=== PATIENT | female | born 1980 | race Caucasian/White ===

== ENCOUNTER 2016-06-28 15:49 | Emergency (ER) | payer OTHER ==
[~2016-06-28 15:49] MED LIST: MINIPRES CAP 2 M2 MG PO; MINIPRESS PO; PAXIL10 MG PO; PEPCID20 MG PO
[2016-06-28 17:02] LABS: HEMOGLOBIN 12.6 gm/dl (12.3-15.3); RED BLOOD COUNT 4.38 M/UL (4.00-5.10); WHITE BLOOD COUNT 11.1 K/UL (4.5-11.0)
[2016-06-28 17:20] LABS: BUN/CREATININE RATIO 28 (0-10)
== END 2016-06-28 20:05 | disposition home or self-care (01) ==
LOC: ER1 15:49
PROVIDERS: Physician Assistant
DX: R55 Syncope and collapse (principal); R11.2 Nausea with vomiting, unspecified; S00.03XA Contusion of scalp, initial encounter; S00.81XA Abrasion of other part of head, initial encounter; L03.811 Cellulitis of head [any part, except face]; F43.10 Post-traumatic stress disorder, unspecified; B19.20 Unspecified viral hepatitis C without hepatic coma; F17.200 Nicotine dependence, unspecified, uncomplicated; W18.30XA Fall on same level, unspecified, initial encounter; Y92.009 Unspecified place in unspecified non-institutional (private) residence as the place of occurrence of the external cause; Z79.899 Other long term (current) drug therapy
CPT/HCPCS: 36415; 70450; 71010; 80053; 81001; 82550; 82553; 83874; 84484; 84703; 85025; 93005; 96374; 96375; 99284; J1885; J2270; J2405

== ENCOUNTER 2016-06-30 17:40 | Emergency (ER) | payer OTHER | END 2016-06-30 21:11 | disposition left against medical advice (07) | LOC: ER1 17:40 | DX: Z53.21 Procedure and treatment not carried out due to patient leaving prior to being seen by health care provider (principal) ==

== ENCOUNTER 2016-08-22 08:16 | Emergency (ER) | payer OTHER ==
[2016-08-22 09:55] LABS: RED BLOOD COUNT 5.26 M/UL (4.00-5.10); WHITE BLOOD COUNT 7.8 K/UL (4.5-11.0)
[2016-08-22 10:09] LABS: BUN/CREATININE RATIO 26 (0-10)
== END 2016-08-22 14:25 | disposition home or self-care (01) ==
LOC: ER1 08:16
PROVIDERS: Physician Assistant
DX: J06.9 Acute upper respiratory infection, unspecified (principal); N39.0 Urinary tract infection, site not specified; R55 Syncope and collapse; I10 Essential (primary) hypertension; F17.210 Nicotine dependence, cigarettes, uncomplicated
CPT/HCPCS: 36415; 70450; 71020; 80053; 81001; 82550; 82553; 83605; 83874; 84484; 84703; 85025; 85379; 87040; 93005; 96374; 99284; J2405

== ENCOUNTER 2016-12-28 18:23 | Emergency (ER) | payer OTHER ==
[2016-12-28 19:11] LABS: HEMOGLOBIN 12.4 gm/dl (12.3-15.3); RED BLOOD COUNT 4.29 M/UL (4.00-5.10); WHITE BLOOD COUNT 8.4 K/UL (4.5-11.0)
[2016-12-28 19:32] LABS: BUN/CREATININE RATIO 20 (0-10)
== END 2016-12-28 22:27 | disposition home or self-care (01) ==
LOC: ER1 18:23
PROVIDERS: Family Medicine
DX: R07.81 Pleurodynia (principal); R22.42 Localized swelling, mass and lump, left lower limb; R00.2 Palpitations; R06.02 Shortness of breath; I10 Essential (primary) hypertension; F17.210 Nicotine dependence, cigarettes, uncomplicated
CPT/HCPCS: 36415; 71010; 80053; 81001; 82550; 82553; 83874; 84484; 84703; 85025; 85610; 85730; 93005; 99285; J7050; Q9963

== ENCOUNTER 2020-10-19 18:33 | Emergency (ER) | payer OTHER ==
[~2020-10-19 18:33] MED LIST changes: +BACTRIM 400-801 EACH PO; +BUSPIRONE HCL15 MG PO; +CLARITIN10 M2 PO; +DESYREL 50 MG T50 MG PO; +FELDENE10 MG PO; +FLAGYL500 MG PO; +FLEXERIL 10 MG10 MG PO; +HABITROL 21 MG P1 EA TOP; +HYDROCODON-ACE1 EAC3 PO; +IBUPROFEN600 MG PO; +INDERAL TAB 1010 MG PO; +KEFLEX CAP 500500 MG PO; +LAMICTAL TAB 2525 MG PO; +MACROBID 100 M100 MG PO; +NORFLEX 100 MG100 MG PO; +PERCOCET 5/325 T1 EA PO; +PHENERGAN 25 MG25 M1 PO; +PREDNISONE 50 M50 MG PO; +PRINIVIL10 MG PO; +SEROQUEL25 MG PO; +STRATTERA25 MG PO; +Voltaren Gel 1% EXT; +Voltaren Gel 1% TOP; +ZOFRAN ODT 4 MG4 MG SL; +ZOFRAN4 MG PO; +ZOLOFT50 MG PO
[2020-10-19] MEDS ORDERED: IBU800 MG PO (21:03)
== END 2020-10-19 21:17 | disposition home or self-care (01) ==
LOC: ER1 18:33
DX: S33.5XXA Sprain of ligaments of lumbar spine, initial encounter (principal); S23.3XXA Sprain of ligaments of thoracic spine, initial encounter; S13.4XXA Sprain of ligaments of cervical spine, initial encounter; W01.0XXA Fall on same level from slipping, tripping and stumbling without subsequent striking against object, initial encounter; Y92.830 Public park as the place of occurrence of the external cause
CPT/HCPCS: 72125; 72128; 72131; 99283

== ENCOUNTER 2021-02-28 15:23 | Emergency (ER) | payer OTHER ==
[~2021-02-28 15:23] MED LIST changes: +IBU800 MG PO
[2021-02-28] MEDS ORDERED: NORFLEX 100 MG100 MG PO (17:05)
[2021-02-28] MEDS ORDERED: LODINE CAP 300300 MG PO (17:05)
== END 2021-02-28 17:23 | disposition home or self-care (01) ==
LOC: ER1 15:23
DX: M25.511 Pain in right shoulder (principal); F17.210 Nicotine dependence, cigarettes, uncomplicated
CPT/HCPCS: 73030; 96372; 96374; 99283; J2270; J2360

== ENCOUNTER 2021-03-01 09:07 | Emergency (ER) | payer OTHER ==
[~2021-03-01 09:07] MED LIST changes: +LODINE CAP 300300 MG PO
== END 2021-03-01 09:50 | disposition home or self-care (01) ==
LOC: ER1 09:07
DX: M25.511 Pain in right shoulder (principal); F17.200 Nicotine dependence, unspecified, uncomplicated
CPT/HCPCS: 99283; J2060